=== PATIENT | female | born 1955 | race Caucasian/White ===

== ENCOUNTER 2016-11-18 14:15 | Outpatient (CLI) | payer OTHER | END 2016-11-18 14:16 | disposition home or self-care (01) | LOC: LAB.R 14:15 | PROVIDERS: ATTEND Family Medicine | DX: N30.10 Interstitial cystitis (chronic) without hematuria (principal) | CPT/HCPCS: 87086 ==

== ENCOUNTER 2017-09-04 08:00 | Outpatient (CLI) | payer OTHER ==
[2017-09-04 12:53] LABS: BASOPHILS % (AUTO) 0.9 %; EOSINOPHILS # (AUTO) 0.1 10^3/uL (0.0-0.7); EOSINOPHILS % (AUTO) 2.9 %; HGB - HEMOGLOBIN 11.7 g/dL (12.0-16.0); LYMPHOCYTES # (AUTO) 1.3 10^3/uL (1.5-3.5); LYMPHOCYTES % (AUTO) 33.9 %; MEAN CORPUSCULAR HEMOGLOBIN 27.9 pg (27.0-31.0); MEAN CORPUSCULAR HGB CONC 33.4 g/dL (32.0-36.0); MEAN CORPUSCULAR VOLUME 83.5 fL (81.0-99.0); MEAN PLATELET VOLUME 9.2 fL (7.9-10.8); MONOCYTES # (AUTO) 0.4 10^3/uL (0.0-1.0); MONOCYTES % (AUTO) 10.1 %; NEUTROPHILS # (AUTO) 2.1 10^3/uL (1.5-6.6); NEUTROPHILS % (AUTO) 52.2 %; PLT - PLATELET COUNT 174 10^3/uL (130-450); RED BLOOD COUNT 4.18 10^6/uL (4.20-5.40); RED CELL DISTRIBUTION WIDTH 14.9 % (12.0-15.0); WHITE BLOOD COUNT 3.9 x10^3/uL (4.8-10.8)
[2017-09-04 13:13] LABS: ALBUMIN 3.7 g/dL (3.2-5.5); ALBUMIN/GLOBULIN RATIO 0.7 (1.0-2.2); ALKALINE PHOSPHATASE 53 IU/L (42-121); ALT ALANINE AMINOTRANSFERASE 20 IU/L (10-60); AST ASPARTATE AMINOTRANSFERASE 29 IU/L (10-42); BILIRUBIN,TOTAL 0.7 mg/dL (0.2-1.0); BUN - BLOOD UREA NITROGEN 8 mg/dL (6-20); CALCIUM 9.1 mg/dL (8.5-10.3); CARBON DIOXIDE - CO2 30 mmol/L (21-32); CHLORIDE 98 mmol/L (101-111); CHOL/HDL RATIO 6.2 (<4.4); CHOLESTEROL 265 mg/dL; CREATININE 0.8 mg/dL (0.4-1.0); GFR - MDRD 73 (>89); GLUCOSE 100 mg/dL (70-100); HDL CHOLESTEROL 43 mg/dL; LDL CHOLESTEROL,CALCULATED 192 mg/dL; LDL/HDL RATIO 4.5 (<4.4); SODIUM 135 mmol/L (135-145); TOTAL PROTEIN 8.9 g/dL (6.7-8.2); VLDL CHOLESTEROL 30 mg/dL
== END 2017-09-04 08:01 | disposition home or self-care (01) ==
LOC: LAB.WCP 08:00
PROVIDERS: ATTEND Family Medicine
DX: I10 Essential (primary) hypertension (principal)
CPT/HCPCS: 36415; 80053; 80061; 83721; 84443; 85025

== ENCOUNTER 2017-10-23 13:02 | Outpatient (CLI) | payer OTHER ==
--- NOTE | 2017-10-23 17:20 | CT Report ---
CT CERVICAL SPINE WITHOUT CONTRAST: 10/23/2017 CLINICAL INDICATION: Cervical strain, radiculopathy. TECHNIQUE: Axial CT images of the cervical spine were obtained without intravenous contrast, following which sagittal and coronal reconstructions were performed. In accordance with CT protocol optimization, one or more of the following dose reduction techniques were utilized for this exam: Automated exposure control, adjustment of mA and/or KV based on patient size, or use of iterative reconstructive technique. FINDINGS: The cervical vertebral bodies demonstrate normal height. There is no evidence of fracture or subluxation. The C2-3 disk demonstrates a small central bulge, without significant spinal or foraminal narrowing. At C3-4, there is bulky right facet arthropathy, producing right foraminal narrowing. No spinal stenosis results. At C4-5, there is bulky right facet arthropathy, producing right foraminal narrowing. No spinal stenosis results. At C5-6, there is facet arthropathy, without significant spinal or foraminal narrowing. The C6-7 disk is unremarkable. The C7-T1 disk is unremarkable. Limited evaluation of the lung apices is unremarkable. The prevertebral soft tissues are unremarkable. IMPRESSION: RIGHT FORAMINAL NARROWING, DUE TO FACET ARTHROPATHY, DESCRIBED ABOVE. TD: 10/23/2017 14:17
== END 2017-10-23 13:03 | disposition home or self-care (01) ==
LOC: DI 13:02
PROVIDERS: ATTEND Family Medicine
DX: D47.2 Monoclonal gammopathy (principal); M54.12 Radiculopathy, cervical region; M46.92 Unspecified inflammatory spondylopathy, cervical region; M48.02 Spinal stenosis, cervical region
CPT/HCPCS: 72125

== ENCOUNTER 2018-05-06 18:55 | Outpatient (CLI) | payer OTHER | END 2018-05-06 18:56 | disposition short-term general hospital (02) | LOC: EMS 18:55 | PROVIDERS: ATTEND Surgery | DX: M54.9 Dorsalgia, unspecified (principal) | CPT/HCPCS: A0425; A0427 ==

== ENCOUNTER 2018-07-29 15:50 | Outpatient (CLI) | payer OTHER ==
[2018-07-29] MEDS ORDERED: IOVERSOL 320 100 ML VIAL IVP ONE ×3 (15:51→18:30)
[2018-07-29 16:20] LABS: BASOPHILS % (AUTO) 0.3 %; EOSINOPHILS % (AUTO) 0.4 %; HGB - HEMOGLOBIN 12.3 g/dL (12.0-16.0); LYMPHOCYTES # (AUTO) 1.4 10^3/uL (1.5-3.5); LYMPHOCYTES % (AUTO) 12.3 %; MEAN CORPUSCULAR HEMOGLOBIN 30.6 pg (27.0-31.0); MEAN CORPUSCULAR HGB CONC 34.5 g/dL (32.0-36.0); MEAN CORPUSCULAR VOLUME 88.9 fL (81.0-99.0); MEAN PLATELET VOLUME 8.7 fL (7.9-10.8); MONOCYTES % (AUTO) 8.4 %; NEUTROPHILS % (AUTO) 78.6 %; PLT - PLATELET COUNT 170 10^3/uL (130-450); RED CELL DISTRIBUTION WIDTH 14.3 % (12.0-15.0); WHITE BLOOD COUNT 11.4 x10^3/uL (4.8-10.8)
[2018-07-29 16:26] LABS: ALBUMIN 3.6 g/dL (3.2-5.5); ALBUMIN/GLOBULIN RATIO 0.6 (1.0-2.2); CALCIUM 9.2 mg/dL (8.5-10.3); CREATININE 0.8 mg/dL (0.4-1.0); CRP - C-REACTIVE PROTEIN 10.1 mg/dL (0-1.0); TOTAL PROTEIN 9.2 g/dL (6.7-8.2)
--- NOTE | 2018-07-29 17:33 | CT Report ---
Reason: PAROTID GLAND MASS, NECK MASS Procedure Date: 07/29/2018 Accession Number: [id number] / [id number] Procedure: CT - SOFT TISSUE NECK W CPT Code: FULL RESULT: EXAM: CT SOFT TISSUE NECK WITH CONTRAST. EXAM DATE: 07/29/2018 04:53 PM. HISTORY: 62-year-old female, parotid gland mass. COMPARISONS: CT cervical spine 10/23/2017 TECHNIQUE: Routine soft tissue neck CT protocol. Reconstructions: Coronal and sagittal. IV contrast: CE. In accordance with CT protocol optimization, one or more of the following dose reduction techniques were utilized for this exam: automated exposure control, adjustment of mA and/or KV based on patient size, or use of iterative reconstructive technique. FINDINGS: Visualized Intracranial Contents: Unremarkable. Orbits: Symmetric and unremarkable. Sinuses: Visualized paranasal sinuses and mastoid air cells are clear. Oral cavity: The visualized oral cavity is unremarkable. The floor of the mouth is symmetric. Pharynx : Pharyngeal mucosa is unremarkable. The infratemporal fossa, parapharyngeal spaces, and retropharyngeal space are unremarkable. The base of the tongue is symmetric and unremarkable. The airway is patent. Larynx: Larynx and supraglottic airway are patent without mass lesion. Vocal cords are symmetric. The visualized trachea is unremarkable. Parotid and Submandibular Glands: Punctate calcifications are seen throughout the parotid glands bilaterally without a definite mass. The right parotid gland is enlarged and hyperenhancing, with overlying inflammatory change. There is extensive fatty atrophy of the submandibular glands. Lymph Nodes: Few prominent right-sided upper cervical lymph nodes, for example right level 2A node measuring 13 x 15 mm (series 2 image 118) Soft tissues: Soft tissues are unremarkable. No mass lesion or abnormal enhancement. Vascular Structures: Unremarkable. Thyroid Gland: Normal. Lung: The visualized lung apices are clear. Bones: No evidence of acute fracture or malalignment. There are mild degenerative changes. Other: None. IMPRESSION: 1. Punctate calcifications are seen throughout the parotid glands bilaterally without a definite mass. This appearance is seen with Sjogren's syndrome. Less likely differential considerations would include chronic infectious/obstructive parotitis and benign lymphoepithelial lesions of HIV. 2. The right parotid gland is enlarged and hyperenhancing, with overlying inflammatory change. This may represent superimposed active inflammation/infection of the right parotid gland. 3. There is extensive fatty atrophy of the submandibular glands. 4. Few prominent right-sided upper cervical lymph nodes, for example right level 2A node measuring 13 x 15 mm (series 2 image 118). These are nonspecific, may be reactive to infection/inflammation RADIA
--- NOTE | 2018-07-29 17:38 | CT Report ---
Reason: PAROTID GLAND MASS, NECK MASS Procedure Date: 07/29/2018 Accession Number: [id number] / [id number] Procedure: CT - MAXILLOFACIAL W CPT Code: FULL RESULT: EXAM: CT MAXILLOFACIAL WITH CONTRAST EXAM DATE: 07/29/2018 04:53 PM. CLINICAL HISTORY: 62-year-old female. PAROTID GLAND MASS, NECK MASS. COMPARISONS: CT soft tissue neck obtained concurrently TECHNIQUE: Thin-section axial images were acquired of the face after administration of intravenous contrast. Post-processing: Coronal and sagittal reformats. Other: None. IV contrast: 100 cc Optiray 320. In accordance with CT protocol optimization, one or more of the following dose reduction techniques were utilized for this exam: automated exposure control, adjustment of mA and/or KV based on patient size, or use of iterative reconstructive technique. FINDINGS: Intracranial structures: Unremarkable. Soft Tissue: There is a partially calcified superficial soft tissue Zachariah within the right parietal calvarium measuring 2.9 x 1.4 cm. This is nonspecific, may represent a sebaceous cyst. The infratemporal fossa and parapharyngeal spaces are unremarkable. Orbits:Symmetric and unremarkable. Bones: No fracture or bone lesion. Temporomandibular Joints: The temporomandibular joints are symmetric and normally located. Sinuses: Normal. No mucosal thickening or fluid levels. Glands: 1. Punctate calcifications are seen throughout the parotid glands bilaterally without a definite mass. The right parotid gland is enlarged and hyperenhancing, with overlying inflammatory change. The submandibular glands bilaterally demonstrate marked fatty atrophy. Other: Few prominent upper right cervical lymph nodes. IMPRESSION: 1. Punctate calcifications/sialoliths are seen throughout the parotid glands bilaterally without a definite mass. This appearance is seen with Sjogren's syndrome. Less likely differential considerations would include chronic infectious/obstructive parotitis and benign lymphoepithelial lesions of HIV. 2. The right parotid gland is enlarged and hyperenhancing, with overlying inflammatory change. This may represent superimposed active inflammation/infection of the right parotid gland. 3. Marked fatty atrophy of the submandibular glands. 4. Few prominent upper right cervical lymph nodes, nonspecific but favored to be reactive to infection/inflammation. 5. There is a partially calcified superficial soft tissue Zachariah within the right parietal calvarium measuring 2.9 x 1.4 cm. This is nonspecific, may represent a sebaceous cyst. RADIA
== END 2018-07-29 15:51 | disposition home or self-care (01) ==
LOC: DI 15:50
PROVIDERS: ATTEND Family Medicine
DX: K11.8 Other diseases of salivary glands (principal); R22.1 Localized swelling, mass and lump, neck; K11.5 Sialolithiasis; R59.0 Localized enlarged lymph nodes
CPT/HCPCS: 36415; 70487; 70491; 80053; 85025; 85651; 86140; Q9967

== ENCOUNTER 2018-09-11 13:12 | Outpatient (CLI) | payer OTHER | END 2018-09-11 13:13 | disposition home or self-care (01) | LOC: LAB 13:12 | PROVIDERS: ATTEND Physician Assistant | DX: R59.0 Localized enlarged lymph nodes (principal) ==

== ENCOUNTER 2018-09-13 08:00 | Outpatient (CLI) | payer OTHER ==
[2018-09-13 12:25] LABS: BASOPHILS % (AUTO) 0.9 %; EOSINOPHILS # (AUTO) 0.1 10^3/uL (0.0-0.7); EOSINOPHILS % (AUTO) 1.9 %; LYMPHOCYTES % (AUTO) 40.6 %; MEAN CORPUSCULAR HEMOGLOBIN 29.6 pg (27.0-31.0); MEAN CORPUSCULAR HGB CONC 33.4 g/dL (32.0-36.0); MEAN CORPUSCULAR VOLUME 88.4 fL (81.0-99.0); MEAN PLATELET VOLUME 8.5 fL (7.9-10.8); MONOCYTES # (AUTO) 0.6 10^3/uL (0.0-1.0); MONOCYTES % (AUTO) 12.3 %; NEUTROPHILS # (AUTO) 2.2 10^3/uL (1.5-6.6); NEUTROPHILS % (AUTO) 44.3 %; PLT - PLATELET COUNT 253 10^3/uL (130-450); RED BLOOD COUNT 4.05 10^6/uL (4.20-5.40); RED CELL DISTRIBUTION WIDTH 13.8 % (12.0-15.0); WHITE BLOOD COUNT 4.9 x10^3/uL (4.8-10.8)
[2018-09-13 13:01] LABS: ALBUMIN 3.5 g/dL (3.2-5.5); ALBUMIN/GLOBULIN RATIO 0.7 (1.0-2.2); ALKALINE PHOSPHATASE 43 IU/L (42-121); ALT ALANINE AMINOTRANSFERASE 15 IU/L (10-60); AST ASPARTATE AMINOTRANSFERASE 18 IU/L (10-42); BILIRUBIN,TOTAL 0.9 mg/dL (0.2-1.0); BUN - BLOOD UREA NITROGEN 12 mg/dL (6-20); CALCIUM 9.3 mg/dL (8.5-10.3); CARBON DIOXIDE - CO2 32 mmol/L (21-32); CHLORIDE 95 mmol/L (101-111); CREATININE 0.7 mg/dL (0.4-1.0); GFR - MDRD 85 (>89); GLUCOSE 93 mg/dL (70-100); SODIUM 135 mmol/L (135-145); TOTAL PROTEIN 8.4 g/dL (6.7-8.2)
[2018-09-13 13:04] LABS: CRP - C-REACTIVE PROTEIN < 1.0 mg/dL (0-1.0)
== END 2018-09-13 23:59 | disposition home or self-care (01) ==
LOC: LAB.WCP 08:00
PROVIDERS: ATTEND Physician Assistant
DX: R22.1 Localized swelling, mass and lump, neck (principal); M35.00 Sjogren syndrome, unspecified
CPT/HCPCS: 36415; 80053; 85025; 85651; 86140

== ENCOUNTER 2019-06-11 08:00 | Outpatient (CLI) | payer OTHER | END 2019-06-11 08:01 | disposition home or self-care (01) | LOC: LAB.R 08:00 | PROVIDERS: ATTEND Physician Assistant | DX: N39.0 Urinary tract infection, site not specified (principal) | CPT/HCPCS: 87086 ==

== ENCOUNTER 2020-03-01 08:33 | Outpatient (CLI) | payer MEDICARE ==
--- NOTE | 2020-03-02 12:02 | Mammography Report ---
BILATERAL DIGITAL DIAGNOSTIC MAMMOGRAM 3D/2D: 03/01/2020 CLINICAL: Diffuse left breast pain. Comparison is made to exams dated: 05/17/2015 mammogram, 04/13/2015 mammogram, 07/21/2011 mammogram, a nd 07/16/2011 mammogram - [facility]. There are scattered fibroglandular elements in both breasts. No significant masses, calcifications, or other findings are seen in either breast. IMPRESSION: NEGATIVE There is no abnormality seen in the left breast to correspond with the pain, however, clinical follow up is recommended. There is no mammographic evidence of malignancy. A 1 year screening mammogram is recommended. This exam was interpreted at Station ID: [id number]. NOTE: For mammograms, a report in lay terms will be sent to the patient. Approximately 15% of breast malignancies will not be visualized mammographically. In the management of a palpable breast mass, a negative mammogram must not discourage biopsy of a clinically suspicious lesion. Electronically Signed By: Andrea Smith M.D. ddp/:03/01/2020 09:43:43 ACR BI-RADS Category 1: Negative 3341F PARENCHYMAL PATTERN: (A) - The breast(s) demonstrate(s) scattered fibroglandular densities. BI-RADS CATEGORY: (1) - 1 RECOMMENDATION: (ANNUAL) - Recommend routine annual screening mammography. [id number] 1 year screening LATERALITY: (B)
== END 2020-03-01 08:34 | disposition home or self-care (01) ==
LOC: DI 08:33
PROVIDERS: ATTEND Family Medicine
DX: N64.4 Mastodynia (principal)
CPT/HCPCS: 77066

== ENCOUNTER 2020-05-30 08:00 | Outpatient (CLI) | payer MEDICARE ==
[2020-05-30 18:05] LABS: BASOPHILS # (AUTO) 0.1 10^3/uL (0.0-0.1); BASOPHILS % (AUTO) 0.9 %; EOSINOPHILS # (AUTO) 0.1 10^3/uL (0.0-0.7); HGB - HEMOGLOBIN 11.6 g/dL (12.0-16.0); LYMPHOCYTES % (AUTO) 35.3 %; MEAN CORPUSCULAR HEMOGLOBIN 29.3 pg (27.0-31.0); MEAN CORPUSCULAR VOLUME 91.4 fL (81.0-99.0); MEAN PLATELET VOLUME 11.3 fL (7.9-10.8); MONOCYTES # (AUTO) 0.6 10^3/uL (0.0-1.0); MONOCYTES % (AUTO) 9.8 %; NEUTROPHILS # (AUTO) 2.9 10^3/uL (1.5-6.6); NEUTROPHILS % (AUTO) 51.8 %; PLT - PLATELET COUNT 216 10^3/uL (130-450); RED BLOOD COUNT 3.96 10^6/uL (4.20-5.40); RED CELL DISTRIBUTION WIDTH 13.8 % (12.0-15.0); WHITE BLOOD COUNT 5.6 x10^3/uL (4.8-10.8)
[2020-05-30 18:25] LABS: ALBUMIN 3.6 g/dL (3.2-5.5); ALBUMIN/GLOBULIN RATIO 0.7 (1.0-2.2); ALKALINE PHOSPHATASE 54 IU/L (42-121); ALT ALANINE AMINOTRANSFERASE 25 IU/L (10-60); AST ASPARTATE AMINOTRANSFERASE 28 IU/L (10-42); BILIRUBIN,TOTAL 0.6 mg/dL (0.2-1.0); BUN - BLOOD UREA NITROGEN 12 mg/dL (6-20); CALCIUM 9.2 mg/dL (8.5-10.3); CARBON DIOXIDE - CO2 26 mmol/L (21-32); CHLORIDE 102 mmol/L (101-111); CHOLESTEROL 244 mg/dL; CREATININE 0.9 mg/dL (0.4-1.0); GLUCOSE 103 mg/dL (70-100); HDL CHOLESTEROL 35 mg/dL; LDL CHOLESTEROL,CALCULATED 167 mg/dL; LDL/HDL RATIO 4.8 (<4.4); SODIUM 137 mmol/L (135-145); TOTAL PROTEIN 8.9 g/dL (6.7-8.2); VLDL CHOLESTEROL 42 mg/dL
== END 2020-05-30 23:59 | disposition home or self-care (01) ==
LOC: LAB.WCP 08:00
PROVIDERS: ATTEND Family Medicine
DX: I10 Essential (primary) hypertension (principal)
CPT/HCPCS: 36415; 80053; 80061; 83721; 84443; 85025

== ENCOUNTER 2020-06-26 09:33 | Outpatient (CLI) | payer MEDICARE ==
--- NOTE | 2020-06-26 10:53 | DEXA Report ---
PROCEDURE: Dexa Spine and/or Hip INDICATIONS: POSTMENOPAUSAL TECHNIQUE: Dual energy x-ray absorptiometry (DXA) was performed on a Lumicity System. Regions measur ed are the AP Spine, femoral neck, and if needed forearm. COMPARISON: None. FINDINGS: Lumbar Spine: Bone Mineral Density 1.221 g/cm/cm,T score 0.3, normal bone density Left Femoral Neck: Bone Mineral Density 0.895 g/cm/cm, T score -0.9, normal bone density (T score greater or equal to -1.0: NORMAL) (T score from -1.1 to -2.4: OSTEOPENIA) (T score less than or equal to -2.5 to: OSTEOPOROSIS) Impression: Normal bone mineral density. Patients with diagnosis of osteoporosis or osteopenia should have regular bone mineral density assess ment. For those eligible for Medicare, routine testing is allowed once every 2 years. Testing frequ ency can be increased for patients who have rapidly progressing disease or for those who are receivin g medical therapy to restore bone mass. Reviewed by: Robert Todd MD on 06/26/2020 10:52 AM PST Approved by: Robert Todd MD on 06/26/2020 10:52 AM PST Station ID: [id number]
== END 2020-06-26 09:34 | disposition home or self-care (01) ==
LOC: DI 09:33
PROVIDERS: ATTEND Family Medicine
DX: Z78.0 Asymptomatic menopausal state (principal)

== ENCOUNTER 2020-10-24 08:00 | Outpatient (CLI) | payer MEDICARE ==
[2020-10-24 12:04] LABS: BASOPHILS # (AUTO) 0.1 10^3/uL (0.0-0.1); BASOPHILS % (AUTO) 1.2 %; EOSINOPHILS # (AUTO) 0.1 10^3/uL (0.0-0.7); EOSINOPHILS % (AUTO) 2.6 %; HCT - HEMATOCRIT 35.1 % (37.0-47.0); HGB - HEMOGLOBIN 11.6 g/dL (12.0-16.0); LYMPHOCYTES # (AUTO) 1.4 10^3/uL (1.5-3.5); LYMPHOCYTES % (AUTO) 28.8 %; MEAN CORPUSCULAR HEMOGLOBIN 29.7 pg (27.0-31.0); MEAN PLATELET VOLUME 11.6 fL (7.9-10.8); MONOCYTES # (AUTO) 0.6 10^3/uL (0.0-1.0); NEUTROPHILS # (AUTO) 2.7 10^3/uL (1.5-6.6); NEUTROPHILS % (AUTO) 55.2 %; PLT - PLATELET COUNT 199 10^3/uL (130-450); RED CELL DISTRIBUTION WIDTH 13.8 % (12.0-15.0); WHITE BLOOD COUNT 4.9 x10^3/uL (4.8-10.8)
[2020-10-24 12:45] LABS: ALBUMIN 3.7 g/dL (3.2-5.5); ALBUMIN/GLOBULIN RATIO 0.7 (1.0-2.2); ALKALINE PHOSPHATASE 50 IU/L (42-121); ALT ALANINE AMINOTRANSFERASE 24 IU/L (10-60); AST ASPARTATE AMINOTRANSFERASE 27 IU/L (10-42); BILIRUBIN,TOTAL 0.9 mg/dL (0.2-1.0); BUN - BLOOD UREA NITROGEN 9 mg/dL (6-20); CALCIUM 9.2 mg/dL (8.5-10.3); CARBON DIOXIDE - CO2 29 mmol/L (21-32); CHLORIDE 97 mmol/L (101-111); CHOL/HDL RATIO 3.7 (<4.4); CHOLESTEROL 146 mg/dL; CREATININE 0.9 mg/dL (0.4-1.0); GFR - MDRD 63 (>89); GLUCOSE 103 mg/dL (70-100); HDL CHOLESTEROL 39 mg/dL; LDL CHOLESTEROL,CALCULATED 86 mg/dL; LDL/HDL RATIO 2.2 (<4.4); POTASSIUM 3.5 mmol/L (3.5-5.0); SODIUM 135 mmol/L (135-145); TOTAL PROTEIN 8.7 g/dL (6.7-8.2); TRIGLYCERIDES 107 mg/dL; VLDL CHOLESTEROL 21 mg/dL
[2020-10-24 12:53] LABS: THYROID STIMULATING HORMONE 1.2 uIU/mL (0.34-5.60)
== END 2020-10-24 23:59 | disposition home or self-care (01) ==
LOC: LAB.WCP 08:00
PROVIDERS: ATTEND Family Medicine
DX: I10 Essential (primary) hypertension (principal); E78.5 Hyperlipidemia, unspecified
CPT/HCPCS: 36415; 80053; 80061; 83721; 84443; 85025